=== PATIENT | female | born 1965 | race Caucasian/White ===

== ENCOUNTER 2017-02-02 08:33 | Emergency (ER) | payer OTHER ==
--- NOTE | ~2017-02-02 | CR20 ---
[facility]. [facility] A Service of [facility] & [facility] [place] RADIOLOGY TEXT RESULTS PATIENT: DAVID HOLT LOCATION: SED : 69 UNIT #: [id number] AGE: [address]: Greg Fenton MD SEX: F ORDER DR: [id number] [address] [address] [id number] E MR#: [id number] Acc #: [id number] NAME: DAVID HOLT : 1965 SEX: F STUDY DATE/TIME: 02/02/2017 8:33 UNIT: SED ROOM: STUDY DESCRIPTION: CR Ankle Min 3 Views Lt Attending Physician: Greg Fenton M.D. Ordering Physician: Greg Fenton M.D. Primary Care Physician: Raúl Borjas Aprn MEDICAL IMAGING REPORT This report is preliminary unless electronic signature is present. EXAM Left ankle 3 views 02/02/2017 08:33 a.m. HISTORY History sheet states left foot/ankle went through utility room floor then she fell. Pain since 7:30 a.m. Pain more on the lateral side. FINDINGS No acute fracture or dislocation is noted. Chronic medial submalleolar ossification is incidentally noted. Small calcaneal enthesophytes are present. No radiopaque foreign body or soft tissue abnormality is noted. IMPRESSION Negative for acute abnormality. Dictated by... Lauren Guzman M.D. THIS IS AN ELECTRONICALLY VERIFIED REPORT Lauren Guzman M.D. at 02/02/2017 12:10 PM NGOZI/rory TD: 02/02/2017 11:23 JOB #: [id number] MEDICAL IMAGING REPORT Page 1 of 1
--- NOTE | ~2017-02-02 | CR181 ---
[facility] A Service of [facility] RADIOLOGY TEXT RESULTS PATIENT: DAVID HOLT LOCATION: SED : [birth year] UNIT #: [id number] AGE: [address]: Greg Fenton MD SEX: F ORDER DR: [id number] [address] [address] [id number] E MR#: [id number] Acc #: [id number] NAME: DAVID HOLT : 1965 SEX: F STUDY DATE/TIME: UNIT: SED ROOM: STUDY DESCRIPTION: CR Lumbar Spine 2 or 3 Views Attending Physician: Greg Fenton M.D. Ordering Physician: Greg Fenton M.D. Primary Care Physician: Raúl Borjas Aprn MEDICAL IMAGING REPORT This report is preliminary unless electronic signature is present. EXAM Lumbar spine series 02/02/2017 0833 hours HISTORY 51-year-old woman who fell after foot went through floor of utility room at home today at 0730 hours. Low back pain and ankle pain. COMPARISON Lumbar spine series 09/23/2016 FINDINGS AP and lateral views of lumbar spine and a cone lateral view lumbosacral junction demonstrate a transitional anatomy with partial lumbarization of the S1 vertebra. The lumbar spine is normally aligned. There is minimal endplate spurring similar to 09/23/2016. There is no acute fracture or subluxation. IMPRESSION 1. 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 2. There is mild endplate spurring with no compression fracture or malalignment. There is no change from 09/23/2016. Dictated by... Keysha Phillip M.D. THIS IS AN ELECTRONICALLY VERIFIED REPORT Keysha Phillip M.D. at 02/02/2017 2:07 PM SMM/to TD: 02/02/2017 11:33 JOB #: [id number] [facility] A Service of [facility] RADIOLOGY TEXT RESULTS PATIENT: DAVID HOLT LOCATION: [facility] : [birth year] UNIT #: [id number] AGE: [address]: Greg Fenton MD SEX: F ORDER DR: MEDICAL IMAGING REPORT Page 1 of 1
[~2017-02-02 08:33] MED LIST: ALBUTEROL HFA INH; ALBUTEROL17 GM INH; AMOXICILLIN875 MG PO; COMBIVENT RESPIM4 GM INH; LEVAQUIN750 MG PO; LEVOTHYROXINE75 MCG PO; LIPITOR; METFORMIN; NO MEDICATIONS; PHENERGAN W/CO120 ML PO; PREDNISONE PO; SEROQUEL XR150 MG PO; SLEEPING PILL; TRAVEL MOTION S25 MG PO; TRAZODONE; VOLTAREN75 MG PO
== END 2017-02-02 09:52 | disposition home or self-care (01) ==
LOC: SED 08:33
DX: S93.402A Sprain of unspecified ligament of left ankle, initial encounter (principal); S39.012A Strain of muscle, fascia and tendon of lower back, initial encounter; E11.9 Type 2 diabetes mellitus without complications; W01.0XXA Fall on same level from slipping, tripping and stumbling without subsequent striking against object, initial encounter; Y92.009 Unspecified place in unspecified non-institutional (private) residence as the place of occurrence of the external cause
CPT/HCPCS: 72100; 73610; 99284

== ENCOUNTER 2017-02-28 12:59 | Emergency (ER) | payer OTHER ==
--- NOTE | ~2017-02-28 | EKG ---
PATIENT: DAVID HOLT UNIT #: [id number] Ventricular Rate: 75 BPM Atrial Rate: 75 BPM P-R Interval: 178 ms QRS Duration: 82 ms Q-T Interval: 396 ms QTC Calculation(Bezet): 442 ms P Mcalester: 24 degrees Calculated R Mcalester: 5 degrees Calculated T Mcalester: -4 degrees Diagnosis Line: Normal sinus rhythm Diagnosis Line: Normal ECG Diagnosis Line: When compared with ECG of 03-AUG-2015 18:51, Diagnosis Line: No significant change was found Diagnosis Line: Confirmed by KIA MONTERROSO MD ([id number]) on 03/02/2017 Diagnosis Line: 5:46:43 PM INTERPRETING MD: LOC CARR
[2017-02-28 13:48] LABS: BASOPHIL% 0.8 % (0-2.5); EOSINOPHIL# 0.1 X10e3 (0-0.7); EOSINOPHIL% 1.7 % (0.0-7.0); HEMATOCRIT 41.5 % (35.0-45.0); LYMPHOCYTE# 1.5 X10e3 (1.0-3.5); LYMPHOCYTE% 23.6 % (17.0-45.0); MEAN CELL VOLUME 90.2 FL (83-96); MEAN CORPUSCULAR HEMOGLOBIN 30.4 PG (28-34); MEAN CORPUSCULAR HGB CONC 33.7 g/dL (30-36); MEAN PLATELET VOLUME 7.7 FL (6.5-11.5); MONOCYTE# 0.5 X10e3 (0-1.0); MONOCYTE% 7.5 % (3.0-12.0); NEUTROPHIL# 4.2 X10e3 (1.5-7.1); NEUTROPHIL% 66.4 % (40-75); PLATELET COUNT 212 X10e3 (140-420); RED CELL DISTRIBUTION WIDTH 13.1 % (11.0-15.5); WHITE BLOOD COUNT 6.3 X10e3 (4.0-10.5)
[2017-02-28 13:52] LABS: DIFF IND NO
[2017-02-28 14:06] LABS: ALBUMIN SERUM 3.8 g/dL (3.5-5.0); BILIRUBIN, DIRECT 0.1 mg/dL (0.0-0.2); BILIRUBIN,INDIRECT 0.7 mg/dL (0.0-0.9); BILIRUBIN,TOTAL 0.8 mg/dL (0.2-2.0); BUN/CREATININE RATIO 22.85; CALCIUM SERUM 8.9 mg/dL (8.4-10.2); CREATININE SERUM 0.7 mg/dL (0.6-1.4); GLOM FILT RATE Estimated 101.7 mL/min (>60); POTASSIUM 3.9 mmol/L (3.5-5.1); PROTEIN TOTAL SERUM 6.7 g/dL (6.0-8.3)
== END 2017-02-28 14:43 | disposition home or self-care (01) ==
LOC: SED 12:59
PROVIDERS: Emergency Medicine
DX: R42 Dizziness and giddiness (principal); E16.2 Hypoglycemia, unspecified; J45.909 Unspecified asthma, uncomplicated; Z79.899 Other long term (current) drug therapy
CPT/HCPCS: 36415; 80048; 80076; 82947; 85025; 93005; 99283